=== PATIENT | female | born 1975 | race Caucasian/White ===

== ENCOUNTER 2018-07-30 01:34 | Emergency (ER) | payer SELFPAY ==
--- NOTE | 2018-07-30 02:01 | EDM.PDOC ---
ED HPI GENERAL MEDICAL PROBLEM - General Chief Complaint: Respiratory Problem Stated Complaint: SOB RECENT CANCER TREATMENT Time Seen by Provider: 07/30/18 01:51 Source of Information: Reports: Patient History Limitations: Reports: No Limitations - History of Present Illness INITIAL COMMENTS - FREE TEXT/NARRATIVE: 43-year-old female presents to the ED with her . She reports that she is chronically ill with severe paroxysmal cough with occasional sputum production for the last 4 months. She has fractured multiple left-sided ribs from coughing so much. She hasn't slept for 3 days due to the severity of the cough. She is wheezing throughout both lung matos which is audible. She reports she has a home nebulizer as well as metered-dose inhalers which aren't helping much to reduce the wheezing and/or dyspnea. She states she is becoming more more short of breath on minimal exertion such as walking from the bedroom to the bathroom. She reports that she had a tonsillar lesion on the left side of her throat which was resected by ear nose and throat doctor in March last year in [facility]. On recheck apparently the cancer was well encapsulated and had not metastasized anywhere and no follow-up or radiation treatment was advised partially since that time she is developed increased paroxysmal productive cough that seems to get some home but better with antibiotic therapy. She's been in hospital and treated with high-dose steroids which perhaps helped for short period of time. She said CT chest which proved to be negative. She has not had multiple chest x-rays as well. She does clinically have a sinus congestion and postnasal drip which may or may not be contributing to the cough. However she is wheezing quite severely suggestive of COPD. O2 sats are currently 94% on room air. Onset: Other (Chronic problem since late March 2018) Duration: Chronic (Foreign half months.), Getting Worse Location: Reports: Chest (Severe paroxysmal occasionally productive cough with a metallic sort of taste.) Quality: Reports: Stabbing (Stabbing pain left ribs from fractures from coughing so hard) Severity: Severe Improves with: Reports: Other (She is interested is in improvement after Z-Helio and other antibiotics and inhalational medication helps mildly.) Worsens with: Reports: Other Context: Denies: Activity, Lifting, Sick Contact, Trauma, Other Associated Symptoms: Reports: Chest Pain, Cough (Occasional whitish sputum), cough w sputum, Loss of Appetite, Shortness of Breath, Weakness. 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 (see below) (No new medications.) Left Chest Pain Score (Numeric/FACES): 10 - Related Data Allergies Allergy/AdvReac Type Severity Reaction Status Date / Time No Known Allergies Allergy Verified 07/30/18 01:47 Home Meds: Home Meds Albuterol [Ventolin HFA] 2 puff INH Q4H PRN #1 mdi 07/30/18 [Rx] Albuterol/Ipratropium [DuoNeb 3.0-0.5 MG/3 ML] 3 ml .XX QID #120 neb 07/30/18 [ Rx] Budesonide [Pulmicort] 0.5 mg IH BID #60 neb 07/30/18 [Rx] Past Medical History Oncologic (Cancer) History: Reports: Other (See Below) Other Oncologic History: throat CA - Past Surgical History HEENT Surgical History: Reports: Tonsillectomy GI Surgical History: Reports: Cholecystectomy Social & Family History - Tobacco Use Smoking Status *Q: Former Smoker (She quit in March of this last year after 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 Never a heavy smoker usually three quarters of a pack per day.) Tobacco Use Within Last Twelve Months: Cigarettes - Living Situation & Occupation Living situation: Reports: Occupation: Unemployed ED ROS GENERAL - Review of Systems Review Of Systems: See Below Constitutional: Reports: Malaise, Weakness, Fatigue, Decreased Appetite ( Exhausted from not being able to sleep.). Denies: Fever, Chills HEENT: Reports: Sinus Problem. Denies: Throat Pain (Sinus congestion with postnasal drip.), Throat Swelling, Vertigo Respiratory: Reports: Shortness of Breath, Wheezing, Cough (Severe paroxysmal cough), Sputum. Denies: Pleuritic Chest Pain, Hemoptysis (Occasional sputum production) Cardiovascular: Reports: Chest Pain, Dyspnea on Exertion (Severe.). Denies: No Symptoms, Blood Pressure Problem (Central chest pain from coughing so much.), Claudication, Edema, Lightheadedness, Orthopnea Endocrine: Reports: Fatigue GI/Abdominal: Reports: No Symptoms : Reports: Other (Stress incontinence.) Musculoskeletal: Reports: Other (Multiple left rib fractures from coughing so much that still hurt with coughing.) Skin: Reports: No Symptoms Neurological: Reports: No Symptoms Psychiatric: Reports: No Symptoms Hematologic/Lymphatic: Reports: No Symptoms Immunologic: Reports: No Symptoms ED EXAM, GENERAL - Physical Exam Exam: See Below Exam Limited By: No Limitations General Appearance: Alert, WD/WN, Moderate Distress (She can still talk normally. She is very anxious and apprehensive.) Eye Exam: Bilateral Eye: Normal Inspection Throat/Mouth: Other (Evidence of recent tonsillar resection bilaterally.) Head: Atraumatic ( The oropharynx is mildly diffusely erythematous without exudate.), Normocephalic Neck: Normal Inspection, Supple, Non-Tender, Full Range of Motion. No: Lymphadenopathy (L), Lymphadenopathy (R) Respiratory/Chest: Respiratory Distress, Decreased Breath Sounds, Wheezing ( Bilateral audible wheezing in all lung matos.), Accessory Muscle Use (First the tripod position.). No: Lungs Clear (Marked tachypnea 28-30/m. O2 sats are 94% on room air), Normal Breath Sounds, Crackles, Rales (Decreased breath sounds lower 25% of lung matos bilaterally.), Rhonchi Cardiovascular: Normal Peripheral Pulses, Regular Rate, Rhythm, No Edema, No Gallop, No Murmur, No Rub Peripheral Pulses: 3+: Posterior Tibial (L), Posterior Tibial (R), Dorsalis Pedis (L), Dorsalis Pedis (R) GI/Abdominal: Normal Bowel Sounds, Soft, Non-Tender, No Organomegaly, No Mass, Pelvis Stable, Distended (Mildly distended with some aerophagia. Upper abdomen) Back Exam: Normal Inspection, Full Range of Motion Extremities: Normal Inspection, Normal Range of Motion, Non-Tender, No Pedal Edema Neurological: Alert, Oriented, CN II-XII Intact, Normal Cognition Psychiatric: Anxious Skin Exam: Warm, Dry, Intact, Normal Color, No Rash Course - Vital Signs Last Recorded V/S: Last Vital Signs Temp 37.1 C 07/30/18 01:42 Pulse 101 H 07/30/18 01:42 Resp 26 H 07/30/18 01:42 BP 129/77 07/30/18 01:42 Pulse Ox 94 L 07/30/18 02:16 - Orders/Labs/Meds Orders: Active Orders 24 hr Category Date Time Status RT Aerosol Therapy [RC] ASDIRECTED Care 07/30/18 02:07 Active Chest 1V Frontal [CR] Stat Exams 07/30/18 02:14 Taken Meds: Medications Discontinued Medications Generic Name Dose Route Start Last Admin Trade Name Nelson PRN Reason Stop Dose Admin Albuterol/Ipratropium 3 ml 07/30/18 02:07 07/30/18 02:15 Duoneb 3.0-0.5 Mg/3 Ml NEB 07/30/18 02:08 3 ml ONETIME ONE Administration Budesonide 0.5 mg 07/30/18 02:07 07/30/18 02:15 Pulmicort NEB 07/30/18 02:08 0.5 mg ONETIME ONE Administration Oxycodone/Acetaminophen 2 tab 07/30/18 02:29 07/30/18 02:38 Percocet 325-5 Mg PO 07/30/18 02:30 2 tab ONETIME ONE Administration Prochlorperazine Maleate 5 mg 07/30/18 02:30 07/30/18 02:39 Compazine PO 07/30/18 02:31 5 mg ONETIME ONE Administration - Radiology Interpretation Free Text/Narrative:: 43-year-old female presents to the ED due to severe paroxysmal cough and wheezing. She states walking from the bedroom to the bathroom causes severe dyspnea. 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 No evidence of metastatic disease. He has broken multiple left ribs from coughing so hard. She lives in [place], [place]. She has not seen a onion tier. She's been hospitalized on 2 occasions and given large doses of intravenous steroids with may be transient benefit. Similarly antibiotic seemed to help for short period of time and then within 2 or 3 days she is right back where she started. Loosely needs follow-up with onion tier and bronchoscopy performed. Plan I'm going to give her DuoNeb with a Pulmicort nebulizer treatment. One view chest x-ray will be obtained here. Going to give HER-2 Percocet tablets 5/325 mg for headache relief left rib pain relief and tacked as a cough suppressant. - Re-Assessments/Exams Free Text/Narrative Re-Assessment/Exam: 07/30/18 03:14: Patient has much better air flow to her lower lung matos with only occasional wheezing is from the bases. She is not coughing as much either. I think she needs to have your 2 receptors in her upper airway settle down. I'm therefore going to discharge her on DuoNeb 4 times daily and Pulmicort nebulized twice a day for the next month. I also refilled Ventolin inhaler. Is x -ray done in the ED tonight was normal. She did get good relief from the DuoNeb and Pulmicort treatment in the ED. I'm going to have her follow up with either Dr. Opal Johnson or Dr. John Mehta in the family medicine unit to arrange for a pulmonology consultation. It appears that she has developed some form of severe allergic reaction to precipitate such a severe exacerbation of asthma. Clinically she does have a COPD component to her illness. She has stopped smoking since March. She has never been a heavy smoker . I believe she needs a workup for alpha-1 antitrypsin deficiency and evaluation of her home for potential allergy triggers. Departure - Departure Time of Disposition: 03:14 Disposition: Home, Self-Care 01 Condition: Fair Clinical Impression: Asthma exacerbation in COPD Exacerbation of asthma Qualifiers: Asthma severity: severe Asthma persistence: persistent Qualified Code(s): J45.51 - Severe persistent asthma with (acute) exacerbation - Discharge Information *PRESCRIPTION DRUG MONITORING PROGRAM REVIEWED*: Not Applicable *COPY OF PRESCRIPTION DRUG MONITORING REPORT IN PATIENT GISEL: Not Applicable Prescriptions: Albuterol [Ventolin HFA] 2 puff INH Q4H PRN #1 mdi PRN Reason: Shortness of breath/wheezing Albuterol/Ipratropium [DuoNeb 3.0-0.5 MG/3 ML] 3 ml .XX QID #120 neb Budesonide [Pulmicort] 0.5 mg IH BID #60 neb Instructions: Chronic Obstructive Pulmonary Disease, [id number], Asthma, Adult, [id number] Forms: ED Department Discharge Additional Instructions: Evaluation in the emergency room tonight in regards to severe shortness of breath which we call dyspnea associated with severe wheezing and severe uncontrolled paroxysmal coughing. Recent fracture of 3 ribs on the left side due to severe cough. It appears that you have an acute exacerbation of asthma with mild emphysema changes that of been aggravated since surgery was performed on her left tonsil in March. Unclear at this time what the precipitant of the chronic inflammation is in your lungs. Chest x-ray done in the emergency room tonight was within normal limits. Again no fractures on the left ribs were identified on plain films. We always look for triggers such as any plans within the home and of course any abnormal such as cats or dogs that may shed dander. Sometimes it can be carpeting in an older home that is the trigger as well. You' re treated with DuoNeb and Pulmicort Nebules in the ED tonight and improved air entry and wheezing. You are given 2 Percocet tablets to help with your rib pain , headache and also to work as a cough suppressant so that you might get some sleep tonight. It is my suggestion that you use DuoNeb 4 times daily for the next month to bring this process under control. This is to be used with Pulmicort Nebules in the morning and bedtime as well for the next month. I also refilled her Ventolin inhaler to be used 2 puffs every 3 hours as needed when you're not at home more in between DuoNeb treatments if needed. It is my hope that the Pulmicort will settle down upper airway inflammation and bring the cough slowly under control over the next 10-14 days. Suggest a follow-up appointment be made with Dr. Opal Johnson or Dr. John Mehta who are doctors at work and our hospital on the east side of the Hospital third floor. Please call [phone] to arrange an appointment. It is my opinion that you would benefit from a pulmonology specialist consultation which will be done in [place]. Either one of these physicians could facilitate that consultation with a specialist. - My Orders Last 24 Hours: My Active Orders 07/30/18 02:07 RT Aerosol Therapy [RC] ASDIRECTED 07/30/18 02:14 Chest 1V Frontal [CR] Stat - Assessment/Plan Last 24 Hours: My Active Orders 07/30/18 02:07 RT Aerosol Therapy [RC] ASDIRECTED 07/30/18 02:14 Chest 1V Frontal [CR] Stat
[2018-07-30] MEDS ORDERED: Albuterol/Ipratropium 3.0-0.5 MG/3 ML Neb Soln NEB ONE (02:07)
[2018-07-30] MEDS ORDERED: Budesonide 0.5 MG/2 ML Neb Susp NEB ONE (02:07)
[2018-07-30] MEDS ORDERED: Acetaminophen/oxyCODONE 325-5 MG Tab PO ONE (02:29)
[2018-07-30] MEDS ORDERED: Prochlorperazine 5 MG Tab PO ONE (02:30)
--- NOTE | 2018-07-30 06:58 | CR ---
Chest: Portable view of the chest was obtained. Comparison: No prior chest x-ray. Heart size and mediastinum are normal. Lungs are clear. Bony structures are grossly intact. Impression: 1. Nothing acute is seen on portable chest x-ray. Diagnostic code #1
== END 2018-07-30 03:35 | disposition home or self-care (01) ==
LOC: JD.ED 01:34
DX: J45.41 Moderate persistent asthma with (acute) exacerbation (principal); J44.1 Chronic obstructive pulmonary disease with (acute) exacerbation; C09.9 Malignant neoplasm of tonsil, unspecified; Z87.891 Personal history of nicotine dependence
CPT/HCPCS: 71045; 94640; 99285; A9270; Q0164; J7620-GY